=== PATIENT | female | born 1995 | race Caucasian/White ===

== ENCOUNTER 2024-02-25 10:59 | Inpatient (IN) | payer BC, SELFPAY ==
[2024-02-25] VITALS (22 sets, daily range): BP systolic 130–167; BP diastolic 80–94; PULSE 83–127; RESP 16; TEMP 37.2–37.6; O2SAT 82–100; BMI 28.3
[2024-02-25] MEDS: Lactated Ringers 1,000 ML 50 ML IV (11:45)
[2024-02-25 12:16] LABS: Protein, Urine (Random) 305.4 mg/dL (<11.9); Protein:Creat Ratio 1716 mg/g CRE (0-200)
[2024-02-25 12:22] LABS: Absolute Lymphocyte Count 1.06 X10^3/uL (0.83-4.51); Absolute Neutrophil Count 5.9 X10^3/uL (2.0-7.7); Basophil# 0.01 X10^3/uL; Basophil% 0.1 % (0-1); Eosinophil# 0.01 X10^3/uL; Eosinophils% 0.1 % (0-5); Hematocrit 29.3 % (37-47); Hemoglobin 9.1 g/dL (12.0-15.0); Lymphocyte # 1.06 X10^3/ul (0.83-4.51); Mean Corp Hgb Conc 31.1 g/dL (32-36); Mean Corpuscular Hgb 26.3 pg (27.0-32.0); Mean Corpuscular Volume 84.7 fL (81-99); Mean Platelet Vol. 12.7 fl (6.2-12.0); Monocyte% 6.6 % (0-10); NRBC Flagged by Analyzer 0 % (0-5); Neutrophil # 5.94 X10^3/uL (2.7-7.7); Neutrophil % 78.8 % (47-70); Platelet Count 238 K/mm3 (150-450); RBC Distribution Width CV 13.2 % (11.6-14.6); RBC Distribution Width SD 40.1 fl (35.1-43.9); Red Blood Count 3.46 M/mm3 (4.2-5.4); White Blood Count 7.6 K/mm3 (4.4-11.0)
[2024-02-25 12:41] LABS: AST(SGOT) 23 U/L (15-37); Alanine Aminotransfer ALT/SGPT 19 U/L (13-56); Creatinine, Serum 0.87 mg/dL (0.55-1.02); EST Glomerular Filtration Rate 81 mL/min (>60); Est Glom Filt Rate - Afr Amer 98 mL/min (>60); Estimated Creatinine Clearance 104.22 ml/min; Uric Acid 4.1 mg/dL (2.6-6.0)
[2024-02-25 13:00] LABS: Syphilis Antibodies Non-reactive
[2024-02-25] MEDS: Oxytocin 15 Units/NS 250ml 15 UNITS/250 ML IV.SOLN 2 UNITS IV (13:41)
--- NOTE | 2024-02-25 18:21 | PCM.HP.OB ---
HPI - General General Date of Admission: 02/25/24 Date of Service: 02/25/24 Chief Complaint: Elevated BP HPI Narrative MAT OQUENDO, is a 28 F who presents from the office with elevated BP. Bilateral low extremity edema. No HAWLEY or vision changes. 3-4 cm in the office Maternal Data Information Final TJ: 03/10/24 Gestational age: 38 PFSH PFSH Medical History (Updated 02/25/24 @ 18:[address] Joanne Ryan MD) Pre-eclampsia Home Medications ?Medication ?Instructions ?Recorded ?Last Taken ?Type famotidine-Ca carb-mag hydrox 10 1 tab PO DAILY heartburn in 02/25/24 02/24/24 History mg-800 mg-165 mg chewable tablet (Acid Financial Operations Consultant Complete (famotidine)) vits,calcium 91-iron 28 pkg PO DAILY 02/25/24 02/24/24 History mg-folic 975 mcg-dha 200 mg oral pack ( + DHA) Allergy/AdvReac Type Severity Reaction Status Date / Time latex Allergy Severe Swelling Verified 02/25/24 11:15 peanut (peanuts) Allergy Severe Swelling Verified 02/25/24 11:16 Surgical History History of surgery Social History Smoking Status: Never smoker History Elective abortions Hx Para 0 Spontaneous abortions Hx # Term Pregnancies Ectopic pregnancies Hx # Pregnancies Multiple births # of living children NST FHR Rate Baby A Baseline: 150 Variability:: Moderate Accelerations:: 15 x 15 Decelerations:: None NST Reactive:: Yes FHR Category:: Category I Uterine Activity:: irregular ROS Constitutional Constitutional: Denies fatigue, fever(s) or malaise Eyes Eyes: Denies change in vision ENT HEENT: Denies dizziness or headache(s) Cardiovascular Cardiovascular: Denies chest pain, dyspnea or lightheadedness Respiratory/Chest Respiratory/Chest: Denies cough or dyspnea Gastrointestinal Gastrointestinal: Denies change in bowel habits Genitourinary Genitourinary: Denies burning urination or genital lesions Integumentary Integumentary: Denies rash Neurologic Neurologic: Denies confusion, dizziness, headache(s), numbness or weakness Vital Signs Vital Signs Vital Signs: 02/25/24 11:19 02/25/24 11:19 02/25/24 11:45 Temperature Temperature Source Pulse Rate 97 Respiratory Rate Blood Pressure 167/94 H 142/81 H BP Systolic 167 142 BP Diastolic 94 81 Pulse Ox 02/25/24 11:45 02/25/24 12:00 02/25/24 12:00 Temperature Temperature Source Pulse Rate 102 H 93 Respiratory Rate Blood Pressure 136/82 H BP Systolic 136 BP Diastolic 82 Pulse Ox 02/25/24 12:15 02/25/24 12:15 02/25/24 12:30 Temperature Temperature Source Pulse Rate 90 Respiratory Rate Blood Pressure 141/85 H 141/89 H BP Systolic 141 141 BP Diastolic 85 89 Pulse Ox 02/25/24 12:30 02/25/24 12:45 02/25/24 12:45 Temperature Temperature Source Pulse Rate 85 92 Respiratory Rate Blood Pressure 151/89 H BP Systolic 151 BP Diastolic 89 Pulse Ox 02/25/24 13:00 02/25/24 13:00 02/25/24 14:50 Temperature Temperature Source Pulse Rate 87 Respiratory Rate Blood Pressure 149/82 H 140/84 H BP Systolic 149 140 BP Diastolic 82 84 Pulse Ox 02/25/24 14:50 02/25/24 14:50 02/25/24 14:50 Temperature Temperature Source Pulse Rate 91 90 Respiratory Rate Blood Pressure BP Systolic BP Diastolic Pulse Ox 99 02/25/24 14:51 02/25/24 14:51 02/25/24 14:51 Temperature Temperature Source Pulse Rate 96 Respiratory Rate 16 Blood Pressure 139/80 H BP Systolic 139 BP Diastolic 80 Pulse Ox 02/25/24 15:51 02/25/24 15:51 02/25/24 15:51 Temperature Temperature Source Pulse Rate 96 Respiratory Rate Blood Pressure 131/84 H BP Systolic 131 BP Diastolic 84 Pulse Ox 100 02/25/24 15:51 02/25/24 16:51 02/25/24 16:51 Temperature Temperature Source Pulse Rate 95 Respiratory Rate 16 Blood Pressure 145/86 H BP Systolic 145 BP Diastolic 86 Pulse Ox 02/25/24 16:51 02/25/24 16:51 02/25/24 16:51 Temperature Temperature Source Temporal Pulse Rate Respiratory Rate 16 Blood Pressure BP Systolic BP Diastolic Pulse Ox 100 02/25/24 16:51 02/25/24 17:53 02/25/24 17:53 Temperature 98.9 F Temperature Source Pulse Rate 90 Respiratory Rate Blood Pressure 146/90 H BP Systolic 146 BP Diastolic 90 Pulse Ox 02/25/24 17:53 02/25/24 17:53 02/25/24 17:54 Temperature Temperature Source Pulse Rate 84 127 H Respiratory Rate Blood Pressure BP Systolic BP Diastolic Pulse Ox 100 02/25/24 17:54 02/25/24 17:54 02/25/24 17:54 Temperature Temperature Source Pulse Rate Respiratory Rate 16 Blood Pressure BP Systolic BP Diastolic Pulse Ox 82 100 Weight Weight: 82.157 kg Body Mass Index (BMI) 28.3 Labs Labs Labs: Blood Type O POSITIVE Antibody Screen NEGATIVE Hct 29.3 % (37-47) L Hgb 9.1 g/dL (12.0-15.0) L Syphilis Total Ab Non-reactive Assessment & Plan (1) 38 weeks gestation of : (2) Pre-eclampsia: QUALIFIERS: Trimester: third trimester Qualified Code(s): O14.93 - Unspecified pre-eclampsia, third trimester PLAN: Plan IOL GBS neg AROM prn epidural prn
[2024-02-26] VITALS (56 sets, daily range): BP systolic 126–182; BP diastolic 65–104; PULSE 78–131; RESP 14–18; TEMP 36.8–38.1; O2SAT 98–100
[2024-02-26] MEDS: Lactated Ringers 1,000 ML 50 ML IV (04:37)
[2024-02-26] MEDS: Lactated Ringers 1,000 ML 999 ML IV (06:22)
[2024-02-26] MEDS: fentaNYL-bupivacaine (epidural) 100 ML BAG EPIDURAL (06:59)
[2024-02-26] MEDS: Ondansetron 4 MG/2 ML Vial IV (07:36)
--- NOTE | 2024-02-26 07:37 | PCM.PN.OB ---
Subjective Subjective AROM for clear fluid. /-1. Epidural in place. Pit at 10. Objective Data Objective Data Vital Signs: Vital Signs Temp Pulse Resp BP Pulse Ox 98.2 F 91 16 135/78 H 100 02/26/24 07:19 02/26/24 07:33 02/26/24 07:19 02/26/24 07:33 02/26/24 07:19 Weight: 82.157 kg Body Mass Index (BMI) 28.3 Intake & Output: Intake and Output for Last 24 Hours 02/24/24 02/25/24 02/26/24 23:59 23:59 23:59 Intake Total 22.63 / 22.63 1516.46 / 1516.46 Balance 22.63 / 22.63 1516.46 / 1516.46 Lab / Micro Data 02/25/24 11:45 02/25/24 11:45 Labs: Laboratory Results - last 24 hr 02/25/24 11:45: WBC 7.6, RBC 3.46 L, Hgb 9.1 L, Hct 29.3 L, MCV 84.7, MCH 26.3 L, MCHC 31.1 L, RDW Std Deviation 40.1, RDW Coeff of Sergo 13.2, Plt Count 238, MPV 12.7 H, Immature Gran % (Auto) 0.400, Neut % (Auto) 78.8 H, Lymph % (Auto) 14.0 L, [place] % (Auto) 6.6, Eos % (Auto) 0.1, Baso % (Auto) 0.1, Absolute Neuts (auto) 5.9, Absolute Lymphs (auto) 1.06, Nucleated RBC % 0, Creatinine 0.87, Estim Creat Clear Calc 104.22, Est GFR (MDRD) Af Amer 98, Est GFR (MDRD) Non-Af 81, Uric Acid 4.1, AST 23, ALT 19, U Random Total Protein 305.4 H, Urine Creatinine 178.00, Protein/Creatinin Ratio 1716 H, Syphilis Total Ab Non-reactive, Blood Type O POSITIVE, Antibody Screen NEGATIVE NST FHR Rate Baby A Baseline: 140 Variability:: Moderate Accelerations:: 15 x 15 Decelerations:: None NST Reactive:: Yes FHR Category:: Category I Uterine Activity:: q3-4 Assessment & Plan (1) Pre-eclampsia: QUALIFIERS: Trimester: third trimester Qualified Code(s): O14.93 - Unspecified pre-eclampsia, third trimester (2) 38 weeks gestation of :
--- NOTE | 2024-02-26 08:31 | PCM.PN.CNM ---
Subjective Subjective Patient seen at bedside. Comfortable with epidural. Denies any pain. Objective Data Objective Data Vital Signs: Vital Signs Temp Pulse Resp BP Pulse Ox 99.1 F 82 16 126/71 H 99 02/26/24 08:26 02/26/24 08:08 02/26/24 08:26 02/26/24 08:08 02/26/24 07:39 Weight: 181 lb 2 oz Body Mass Index (BMI) 28.3 Intake & Output: Intake and Output for Last 24 Hours 02/24/24 02/25/24 02/26/24 23:59 23:59 23:59 Intake Total 22.63 / 22.63 1516.46 / 1516.46 Balance 22.63 / 22.63 1516.46 / 1516.46 Lab / Micro Data 02/25/24 11:45 02/25/24 11:45 Labs: Laboratory Results - last 24 hr 02/25/24 11:45: WBC 7.6, RBC 3.46 L, Hgb 9.1 L, Hct 29.3 L, MCV 84.7, MCH 26.3 L, MCHC 31.1 L, RDW Std Deviation 40.1, RDW Coeff of Sergo 13.2, Plt Count 238, MPV 12.7 H, Immature Gran % (Auto) 0.400, Neut % (Auto) 78.8 H, Lymph % (Auto) 14.0 L, [place] % (Auto) 6.6, Eos % (Auto) 0.1, Baso % (Auto) 0.1, Absolute Neuts (auto) 5.9, Absolute Lymphs (auto) 1.06, Nucleated RBC % 0, Creatinine 0.87, Estim Creat Clear Calc 104.22, Est GFR (MDRD) Af Amer 98, Est GFR (MDRD) Non-Af 81, Uric Acid 4.1, AST 23, ALT 19, U Random Total Protein 305.4 H, Urine Creatinine 178.00, Protein/Creatinin Ratio 1716 H, Syphilis Total Ab Non-reactive, Blood Type O POSITIVE, Antibody Screen NEGATIVE Assessment & Plan (1) 38 weeks gestation of : (2) Pre-eclampsia: QUALIFIERS: Trimester: third trimester Qualified Code(s): O14.93 - Unspecified pre-eclampsia, third trimester (3) Vaginismus: (4) Encounter for induction of labor: PLAN: Plan NST reactive. Cat. 1 tracing CE /-2 Clear fluid IUPC Pitocin at 10 mu/min- continue to increase per policy Anticipate
[2024-02-26] MEDS: Oxytocin 15 Units/NS 250ml 15 UNITS/250 ML IV.SOLN 334 UNITS IV (11:15)
[2024-02-26] MEDS: Methylergonovine 0.2 MG/ML Ampul IM (11:20)
[2024-02-26] MEDS: Oxytocin 15 Units/NS 250ml 15 UNITS/250 ML IV.SOLN 83 UNITS IV (12:35)
--- NOTE | 2024-02-26 12:38 | EX.PCM.OBRPT ---
Documented by User: Sherrie Thomas CNM 02/26/24 18:29 Assessment & Plan (1) (spontaneous vaginal delivery): (2) Status post vaginal delivery: (3) Laceration, obstetrical, second degree: (4) Vaginismus: (5) Pre-eclampsia: QUALIFIERS: Trimester: third trimester Qualified Code(s): O14.93 - Unspecified pre-eclampsia, third trimester Maternal Data Information TJ Calculator Estimated Delivery Date Method Current WG Current Estimate 03/10/24 Manual 38w 1d Vaginal Delivery Maternal Presentation Maternal Presentation: Medically Indicated Induction Type of Induction: Pitocin and Amniotomy Medical Reason for Induction: Preeclampsia, eclampsia Operative Information Date of Procedure: 02/26/24 Pre-Operative Diagnosis: Term gestation, preeclampsia, induction of labor Post-Operative Diagnosis: , Live male Surgery / Procedure Performed: Spontaneous Vaginal Delivery Type of Anesthesia: Epidural Drain: Melendrez to straight drain Estimated Blood Loss: 450 Time of Delivery: 11:13 Findings Description of Procedure: Called to bedside for delivery. With minimal maternal effort, head delivered quickly. Loose nuchal cord reduced and anterior shoulder followed by remainder of body delivered without downward traction. Vigorous male placed on maternal abdomen and attended to by nursing staff. Pitocin IV started for active management of the third stage. 3 vessel cord clamped and cut after short delay by FOB. placed skin to skin with patient. Placenta delivered spontaneously and intact. Uterine tone was boggy. Methergine IM x 1 given and bimanual pressure/ massage completed. Uterus began to firm up. After inspection, a third degree laceration which extended to the right side was suspected. Dr. Lebron called to hospital for evaluation and /or possible repair. Pressure held in place. Dr. Chowdary arrived to room for repair. EBL 450cc APGARS 8/9 Patient and bonding well at this time. Presentation: Vertex Amniotic Membrane Rupture Type: Artificial Time of Membrane Rupture: 0730 Amniotic Fluid Description: Clear Placental Delivery Description: Spontaneous Placenta Disposition: [facility] Cord Vessel Description: 3 Vessels Cord Entanglement: Around neck x 1, loose Nuchal Cord Compression: Without compression Infant A Gender: Male (1 minute): 8 (5 minute): 9 Delayed Cord Clamping: Yes Post Vaginal Delivery Medications Given After Delivery: IV Pitocin and IM Methergin Episiotomy Description: None Laceration: Perineal Extension/lac, Vaginal Extension/lac and 3rd degree Complication Complications: None Documented by User: Dr. Warren Chowdary MD 02/26/24 14:20 Assessment & Plan (1) (spontaneous vaginal delivery): (2) Status post vaginal delivery: (3) Laceration, obstetrical, second degree: (4) Vaginismus: (5) Pre-eclampsia: QUALIFIERS: Trimester: third trimester Qualified Code(s): O14.93 - Unspecified pre-eclampsia, third trimester Maternal Data Information TJ Calculator Estimated Delivery Date Method Current WG Current Estimate 03/10/24 Manual 38w 1d Vaginal Delivery Findings Description of Procedure: Called to bedside for delivery. With minimal maternal effort, head delivered quickly. Loose nuchal cord reduced and anterior shoulder followed by remainder of body delivered without downward traction. Vigorous male placed on maternal abdomen and attended to by nursing staff. Pitocin IV started for active management of the third stage. 3 vessel cord clamped and cut after short delay by FOB. Infant placed skin to skin with patient. Placenta delivered spontaneously and intact. Uterine tone was boggy. Methergine IM x 1 given and bimanual pressure/ massage completed. Uterus began to firm up. After inspection, a possible third degree laceration was noted which extended to the right side was suspected. Dr. Lebron called to hospital for evaluation and /or possible repair. Pressure held in place. Dr. Chowdary arrived to room for repair. Procedure by Rectovaginal exam done. Anal sphincter muscle was intact but had from the right pelvic sidewall. Anal sphincter was re-attached to pelvic sidewall using 2 figure of 8 sutures of 0-vicryl. Repeat rectovaginal exam performed. There was NOT a third degree laceration as the anal sphincter muscle was intact. end procedure by EBL 450cc APGARS 8/9 Patient and infant bonding well at this time. Post Vaginal Delivery Laceration: 2nd degree
[2024-02-26] MEDS: Naproxen 500 MG Tablet PO ×2 (13:21→21:20)
[2024-02-26] MEDS: Acetaminophen 500 MG Tablet 1000 MG PO (18:03)
[2024-02-26] MEDS: Benzocaine/Lanolin/Aloe Vera 1 SPRAY EACH TOPICAL (21:21)
[2024-02-27] VITALS (7 sets, daily range): BP systolic 131–149; BP diastolic 86–98; PULSE 84–97; RESP 16–18; TEMP 36.4–37.1; O2SAT 98–100
[2024-02-27] MEDS: Acetaminophen 500 MG Tablet 1000 MG PO ×2 (00:11→15:28)
--- NOTE | 2024-02-27 06:50 | PCM.PN.CNM ---
Subjective Subjective Patient seen at bedside. Awake and alert. Ambulating and voiding without difficulty. Minimal soreness. Lochia is mild. Denies any headache, vision changes, SOB, CP, or RUQ pain. Formula feeding . Objective Data Objective Data Vital Signs: Vital Signs Temp Pulse Resp BP Pulse Ox O2 Del Method 98.5 F 84 16 138/97 H 98 Room Air 02/27/24 04:45 02/27/24 04:45 02/27/24 04:45 02/27/24 04:45 02/27/24 04:45 02/27/24 04:45 Oxygen Delivery Method Room Air Weight: 181 lb 2 oz Body Mass Index (BMI) 28.3 Intake & Output: Intake and Output for Last 24 Hours 02/25/24 02/26/24 02/27/24 23:59 23:59 23:59 Intake Total 22.63 / 22.63 3016.40 / 3016.40 Output Total 1350 / 1350 Balance 22.63 / 22.63 1666.40 / 1666.40 Lab / Micro Data 02/25/24 11:45 02/25/24 11:45 ROS Eyes Eyes: Denies blurry vision, change in vision or spots in vision ENT HEENT: Denies dizziness or headache(s) Cardiovascular Cardiovascular: Denies abdominal pain, chest pain or dyspnea Respiratory/Chest Respiratory/Chest: Denies cough, dyspnea, shortness of breath at rest or shortness of breath with exertion Gastrointestinal Gastrointestinal: Denies abdominal pain, diarrhea or vomiting Genitourinary Genitourinary: Denies change in urinary stream, difficulty urinating or dysuria Musculoskeletal Musculoskeletal: Reports none Integumentary Integumentary: Denies rash Neurologic Neurologic: Denies dizziness, headache(s), memory loss or weakness Physical Exam Const alert and no apparent distress General Appearance: cooperative and comfortable Exam Limitations: no limitations HEENT normocephalic Eyes General Eye: normal appearance of both eyes Neck full ROM General: normal visual inspection Chest Chest: symmetrical chest wall rise Resp normal respiratory effort and normal air movement Effort and Inspection: symmetric chest movement Auscultation: clear to auscultation bilaterally Cardio regular rate and regular rhythm GI normal to inspection, nondistended, normoactive bowel sounds Back/Spine normal ROM Extremity full ROM and no calf tenderness General Extremity: normal exam except as noted Skin no rashes or lesions noted Neuro CN's II-XII intact bilaterally Psych mental status grossly normal Assessment & Plan (1) Laceration, obstetrical, second degree: (2) Status post vaginal delivery: (3) (spontaneous vaginal delivery): (4) Vaginismus: (5) Pre-eclampsia: QUALIFIERS: Trimester: third trimester Qualified Code(s): O14.93 - Unspecified pre-eclampsia, third trimester PLAN: Plan PPD 1 - Pain control Blood pressures - no severe ranges- BP ranging 130-140/80-90's Formula feeding Anticipate discharge home tomorrow
[2024-02-27] MEDS: Naproxen 500 MG Tablet PO ×2 (10:02→20:42)
[2024-02-27] MEDS: Senna/Docusate Sodium 1 Tablet PO (10:53)
--- NOTE | 2024-02-27 11:41 | CASEMGMT ---
Social Work Assessment Labor and Delivery Unit Patient Address: [address] [place] [address] Phone number: [phone] Date of Referral: 02/27/24 Time of Referral:? 829 Referred By: [facility] Date of Intervention: ?02/27/24? Time of Intervention:? 1044 Reason for Referral:? anxiety History obtained from: medical records, MOB and LEEANN Household composition: Parents report that currently residing in their home is MOB, LEEANN and now baby when ready for discharge. Patient's parent/guardian status:? ?RAOUL and LEEANN state that they met while in college together and have now been together for 9 years. No concerns reported of domestic violence or intimate partner violence. Medical History: ?RAOUL is 28 year old female who is 1, para 0- now 1 following labor and delivery of . RAOUL received routine care during with [facility]. RAOUL presented to hospital for scheduled appointment, and was told that she would be having an induction of labor due to preeclampsia. RAOUL delivered baby at 38 weeks gestation via vaginal delivery. Baby boy, named Jossue Lira, was born weighing 7lb 3oz with agpars of 8 and 9 at one and five minutes of life, respectfully. Baby will be followed by Dr. Mixon for pediatrics. Educational Status:? Both parents obtained Bachelor's degrees. No concerns issues with reading, learning or comprehension. 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 RAOUL was previously working with [employer], but she resigned a couple of months ago in preparation for having a baby. Infant Supplies:?? Parents have obtained all necessary baby supplies, including: car seat, safe sleep space, clothes, diapers and wipes. Childcare/Caregiver(s):? RAOUL will be the primary caregiver to baby along with LEEANN when he is not at work. Transportation:?? Both parents have their drivers license and reliable means of transportation. No barriers at this time. Programs/Agencies Involved: ???Parents are not connected to any community agencies that help them financially. Parents deny linkage to any mental health services or supports. Children Services/Legal Issues:??? No prior involvement with Children Services, no issues or concerns warranting a referral to be made at this time. Behavioral Health Issues: ??Mental Health History:?Parents deny mental health history. ?? Substance Use History:?Parents deny substance use prior to or during Family History: Parents deny family history of addiction or significant mental health diagnoses? Drug Screens: ??No drug screens observed in chart review. Family/Social Stressors:? Parents deny any stressors, issues or concerns at this time. Support Systems: MOB states that FOB is her biggest support person along with both sets of grandparents and extended family and friends. Depression/Shaken Baby/Safe Sleeping:? Sw educated parents on signs and symptoms of mood and anxiety disorders. Sw encouraged MOB to reach out to her supports and her OBGYN if she were to struggle during this period. FOB states that he would be able to recognize if MOB were struggling and he would know how to help and support her. Sw educated parents on shaken baby prevention and ABCs of safe sleep. Parents expressed understanding. ASSESSMENT:? MOB and baby admitted following labor and delivery. MOB was observed to be in bed holding baby and providing appropriate and loving hands on care. FOB sitting at bedside beside MOB and was observed to be supportive and attentive. Consult for maternal mental health for anxiety, however MOB denies current or past symptoms or diagnoses. Parents have obtained all baby supplies and have a lot of natural supports in place. PLAN:? MOB and baby to be discharged when medically ready. ?No other services requested or indicated. Freddy Ferreira, LOBBY PORTER, RESIDENTIAL LIVING ASSISTANT
[2024-02-27] MEDS: 0.9% Saline Lock 10 ML Syringe IV (20:42)
[2024-02-28] VITALS (8 sets, daily range): BP systolic 117–135; BP diastolic 65–91; PULSE 90–129; RESP 16–17; TEMP 36.3–37; O2SAT 99–100
[2024-02-28] MEDS: NIFEdipine 30 MG Tablet PO (00:13)
[2024-02-28] MEDS: Senna/Docusate Sodium 1 Tablet PO (08:07)
--- NOTE | 2024-02-28 09:06 | NURSING ---
0825 pts heart rate elevated at times over 120- pt placed on the cardiac/vascular sonographer- heart rate monitored over the next 30 minutes and strips sent to chart- over the 30 minutes the heart rate was mostly in 90's and would temporarily elevate to 120 for short periods.
--- NOTE | 2024-02-28 09:34 | NURSING ---
0962 dr mackenzie here on the unit- made aware of pts intermittent elevated heart rate
--- NOTE | 2024-02-28 09:51 | PCM.PN.BLA ---
Progress Note Patient is doing well and she offers no complaints. She desires discharge today. She denies lightheadedness or dizziness. She denies any chest pain, trouble breathing, shortness of breath, palpitations. She is ambulating and voiding without difficulty. She is tolerating regular diet without nausea or vomiting. Lochia is normal. She has a mild headache this morning that she attributes to only sleeping 1 hour last night. No vision changes, right upper quadrant pain, nausea or vomiting. Physical Exam Const alert and no apparent distress General Appearance: comfortable HEENT normocephalic Resp normal respiratory effort GI soft to palpation, non-tender and non-distended Extremity normal to inspection and no calf tenderness Assessment & Plan Assessment/Plan (1) Laceration, obstetrical, second degree: (2) Status post vaginal delivery: PLAN: Doing well . Meeting milestones for discharge and discharge instructions reviewed. (3) (spontaneous vaginal delivery): (4) Pre-eclampsia: QUALIFIERS: Trimester: third trimester Qualified Code(s): O14.93 - Unspecified pre-eclampsia, third trimester PLAN: BP mildly elevated and Procardia xl was started last night. Patient has episodes of tachycardia with ambulation, which could possibly be secondary to Procardia. She is asymptomatic. Will switch to Labetalol 100 mg PO BID and anticipate discharge later today pending blood pressure control and vitals. She is aware she is to call office Friday to schedule a blood pressure check.
[2024-02-28] MEDS: Labetalol 100 MG Tablet PO (10:25)
[2024-02-28] MEDS: Acetaminophen 500 MG Tablet 1000 MG PO (10:37)
--- NOTE | 2024-02-28 16:31 | DCINST_ITS ---
Discharge Instructions Diet Discharge Diet: No restrictions Activity Discharge Activity: May Drive and May Shower May resume sexual activity in: 6 weeks Ice area for (Minutes): 15 Weight Bearing Status: Weight bearing as tolerated Lifting Restrictions: nothing heavier than baby Additional Activity Instructions:: Push fluids. Have prune or pear juice to dr ink as needed. Use Miralax as needed as well. Call with severe headache that does not resolve with Tylenol, vision changes, upper abdominal pain that is persistent, or if you generally do not feel well. Check your blood pressure before taking Labetalol and do not take if 120/80 or under. Check your blood pressure 2 hours after taking the Labetalol. Keep a blood pressure log and bring to your appointment. Dressing / Incision Call your doctor if you observe: Fever of 101 or Higher, Coldness, Increased Pain, Numbness or Tingling, Change in Color, Inability to urinate, Inability to have a bowel movement, Using more than 1 pad per hour, Shortness of breath, Dizziness, Fainting spells, Swelling in the ankles, Chest pain, Prolonged hiccupping, Increased palpitations (irregular heartbeat), Calf discomfort and Uncontrolled pain Follow Up Care Please Follow Up With: Warren Chowdary MD When: 1 week for a blood pressure check 6 weeks for visit Test Results: Test results from this visit will be discussed in further detail at your follow- up appointment, if applicable. Discharge Plan Admission Admit Date/Time: 02/25/24 10:59 Primary Reason for Your Visit: delivery Attending Provider: Sherrie Thomas Primary Care Provider: Shailesh Mueller Instructions Patient Instructions: After a Vaginal Discharge Orders/Prescriptions Prescriptions: New labetalol 100 mg tablet 100 mg PO BID Qty: 60 0RF ibuprofen 600 mg tablet 600 mg PO Q6H PRN (Reason: pain) Qty: 30 0RF (DME) Blood Pressure Cuff Misc See Rx Instructions .Route Qty: 1 0RF Rx Instructions: As directed Continued + DHA 28 mg iron- 975 mcg-200 mg combo pack PO DAILY Discontinued Acid [employer]er T[employer] Supervisor Complete (famot) 10-800-165 mg tablet,chewable 1 tab PO DAILY Referrals / Follow Up: Shailesh Mueller MD [Primary Care Provider] - Disposition Disposition (needs filled in before D/C Order can be placed): Home, Self Care
== END 2024-02-28 17:20 | disposition home or self-care (01) | DRG 807 ==
PROVIDERS: Obstetrics & Gynecology; Admitting Provider Advanced Practice Midwife; PCP Family Medicine; Referring Provider Advanced Practice Midwife; Visit Provider Advanced Practice Midwife
DX: O14.94 Unspecified pre-eclampsia, complicating childbirth (principal); Z37.0 Single live birth; O69.81X0 Labor and delivery complicated by cord around neck, without compression, not applicable or unspecified; O70.1 Second degree perineal laceration during delivery; Z3A.38 38 weeks gestation of pregnancy
CPT/HCPCS: 59025; 59050; 82565; 82570; 84156; 84450; 84460; 84550; 85025; 86780; 86850; 86900; 86901; 99221; J7120; A4216; G0378; J2405